=== PATIENT | male | born 1945 | race Caucasian/White ===

== ENCOUNTER 2017-09-30 11:00 | Outpatient (CLI) | payer OTHER | END 2017-09-30 11:01 | disposition home or self-care (01) | LOC: BICRAD 11:00 | PROVIDERS: ATTEND Orthopaedic Surgery | DX: S22.32XA Fracture of one rib, left side, initial encounter for closed fracture (principal) ==

== ENCOUNTER 2019-02-19 11:43 | Observation (INO) | payer MEDICARE, BC ==
[2019-02-19 12:09] LABS: #Basophils 0.1 thou/uL (0.0-0.2); #Eosinphils 0.1 thou/uL (0.0-0.7); #Lymphocytes 3.5 thou/uL (1.20-3.40); #Monocytes 0.7 thou/uL (0.11-0.59); #Neutrophils 6.2 thou/uL (1.40-6.50); %Basophils 0.8 % (0.0-1.0); %Eosinophils 1.4 % (0.0-10.0); %Lymphocytes 33.3 % (21.0-51.0); %Monocytes 6.3 % (0.0-10.0); %Neutrophils 58.3 % (42.0-75.0); Hemoglobin 14.7 g/dL (14.0-18.0); Mean Corpuscular HGB CONC 33.7 g/dL (32.0-36.0); Mean Corpuscular Hemoglobin 33.6 pg (27.0-31.0); Mean Corpuscular Volume 99.9 fL (78.0-98.0); Mean Platelet Volume 7.7 fL (7.4-10.4); Platelet Count 253 thou/uL (130-400); RBC Distribution Width 11.7 % (11.5-14.5); Red Blood Cell (RBC) Count 4.36 mill/uL (4.70-6.10); White Blood Cell (WBC) Count 10.6 thou/uL (4.8-10.8)
[2019-02-19 12:37] LABS: ALT (SGPT) 20 U/L (8-55); AST (SGOT) 23 U/L (5-34); Albumin 4.1 g/dL (3.4-4.8); Alkaline Phosphatase 60 U/L (40-150); Anion Gap 13 mmol/L (10-20); BUN (Urea Nitrogen) 34 mg/dL (8.4-25.7); Bilirubin, Total 0.4 mg/dL (0.2-1.2); CK (CPK) 50 U/L (30-200); Calc. Creatinine Clearance 0 mL/min (70-130); Calcium 9.5 mg/dL (7.8-10.44); Carbon Dioxide 22 mmol/L (23-31); Chloride 105 mmol/L (98-107); Estimated GFR-MDRD 66; Globulin 2.7 g/dL (2.4-3.5); Glucose 93 mg/dL (83-110); Potassium 4.4 mmol/L (3.5-5.1); Protein, Total 6.8 g/dL (5.8-8.1); Sodium 136 mmol/L (136-145)
--- NOTE | 2019-02-19 12:56 | RAD ---
PORTABLE CHEST: HISTORY: Chest pain. FINDINGS: Heart size is within normal limits. There are atherosclerotic changes of the aorta. The lungs are c lear of infiltrates. IMPRESSION: No active intrathoracic disease. POS: CET
[2019-02-19 15:28] LABS: Troponin I 0.016 ng/mL (< 0.028)
[2019-02-19] MEDS ORDERED: Nitroglycerin 0.4 MG TAB (25 Tab Bottle) PO PRN (16:09)
[2019-02-19 16:35] VITALS: BMI 24.0
[2019-02-19 18:20] LABS: Troponin I 0.045 ng/mL (< 0.028)
[2019-02-19] MEDS ORDERED: Atorvastatin Calcium 20 MG TAB PO SCH (21:00)
--- NOTE | 2019-02-19 22:27 | HP ---
CHIEF COMPLAINT: Chest pain. HISTORY OF PRESENT ILLNESS: Mr. Pennington is a pleasant 74-year-old male with past medical history significant for hypertension, hyperlipidemia, and a 50 pack-year history of tobacco abuse, who quit 2 years ago, who presented to the hospital today via EMS with complaints of chest pain. The patient states that he was at his place of business working, standing at the counter when his symptoms began. He reports chest pressure, which he describes as "someone standing on his chest." At that time, he did have associated numbness and tingling down both arms. He does deny any diaphoresis or shortness of breath. The pain did not ease up after 10-15 minutes and so EMS was called. When EMS arrived, he was administered sublingual nitroglycerin, which did promptly relieve his pain. On arrival to the ER, 12-lead EKG showed sinus rhythm with no acute ST or T-wave changes. He did have occasional PVCs noted in 1 EKG tracing. His initial troponin is negative and he is currently resting comfortably and chest pain free. Past cardiac history includes a recent evaluation by Dr. Hernandez at [facility]. The patient's primary care doctor, Dr. Campos referred him for further workup based on his numerous risk factors for CAD. He did undergo a treadmill stress test, which was cut short due to significant hypertension. He was to be scheduled for outpatient nuclear stress test pending insurance approval, but that has not been scheduled as of yet. REVIEW OF SYSTEMS: 12-point review of systems performed and is negative except that stated above. The patient has been in his usual state of health. He denies any fatigue, weakness, or febrile illnesses. ALLERGIES: NO KNOWN DRUG ALLERGIES. HOME MEDICATIONS: 1. Lisinopril 20 mg daily. 2. Occasional [id number] ibuprofen as needed. PAST MEDICAL HISTORY: Hypertension, hyperlipidemia, and history of tobacco abuse. SOCIAL HISTORY: As mentioned, the patient was a long-time smoker. He smoked about a pack a day from the age of 23 to the age of 72. He drinks about 4-5 beers a day and denies any illicit drug use. 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 He lives at home with his . FAMILY HISTORY: Positive for coronary artery disease in his brother who is 70 and has had multiple stents placed. His father had some type of valve surgery, but did at the age of 62 of an NC. PAST SURGICAL HISTORY: The patient has never had any surgeries or hospitalizations. PHYSICAL EXAMINATION: VITAL SIGNS: Blood pressure 158/82, pulse is 56, O2 saturation is 98% on room air, respirations 20. The patient is afebrile. GENERAL: This is a well-appearing 74-year-old male, in no acute distress. HEENT: Head is atraumatic and normocephalic. Mucous membranes are moist. NECK: Supple. Trachea is midline. No lymphadenopathy. No JVD. CV: S1 and S2. Regular rhythm, mildly bradycardic. No appreciable murmurs, rubs, or gallops. LUNGS: Regular respiratory rate and pattern, overall clear to auscultation bilaterally. ABDOMEN: Positive bowel sounds. Soft, nontender. EXTREMITIES: +2 DP pulses. No edema. Lower extremities are warm and well perfused. SKIN: Warm and dry. LABORATORY DATA: White blood cell count 10.6, hemoglobin 14.7, hematocrit 43.6, platelets are 253. Sodium 136, potassium 4.4, chloride 105, creatinine 1.1, total bilirubin 0.4. AST, ALT, alkaline phosphatase all within normal limits. Troponin 0.019. ASSESSMENT: 1. Chest pain consistent with angina in a patient with multiple risk factors. 2. Hypertension. 3. Hyperlipidemia. 4. PVCs 5. Sinus bradycardia 5. History of tobacco abuse with approximately 50 pack-year history, quit 2 years ago. 6. Family history of coronary artery disease. PLAN: At this time, we will admit the patient for ACS rule out. He does have multiple risk factors and we will proceed with nuclear stress test in the morning. Continue p.r.n. nitrates. We will start aspirin 81 mg daily along with statin. Obtain fasting lipids in the morning. The patient has been mildly bradycardic and so we will have to hold off on beta cole for now. We will continue the patient's lisinopril. Given the patient's numerous risk factors and presenting symptoms, we will consult Dr. Parikh of Cardiology. This case has been discussed with Dr. Qureshi who agrees with the above. Job ID: [id number] [facility]
[2019-02-19 23:59] LABS: Troponin I 0.024 ng/mL (< 0.028)
[2019-02-20 05:22] LABS: Cardiac Risk 4.4 (Less than 4.5)
[2019-02-20] MEDS ORDERED: hydrALAZINE 20 MG/ML VIAL SLOW IVP PRN (08:34)
[2019-02-20] MEDS ORDERED: Aspirin 81 mg Enteric Coated Tablet PO SCH (09:00)
[2019-02-20] MEDS ORDERED: Lisinopril 20 MG TAB PO SCH (09:00)
--- NOTE | 2019-02-20 11:22 | EKG ---
Test Reason : Blood Pressure : / mmHG Vent. Rate : 057 BPM Atrial Rate : 057 BPM P-R Int : 172 ms QRS Dur : 094 ms QT Int : 440 ms P-R-T Axes : 057 042 057 degrees QTc Int : 428 ms Sinus bradycardia Otherwise normal ECG Confirmed by SABRINA WEATHERS DO ([id number]), technical editor MARGARITO RENTERIA ([id number] on 02/20/2019 11:22:24 AM Referred By: Confirmed By:SABRINA WEATHERS DO
--- NOTE | 2019-02-20 11:22 | EKG ---
Test Reason : Blood Pressure : / mmHG Vent. Rate : 067 BPM Atrial Rate : 067 BPM P-R Int : 172 ms QRS Dur : 090 ms QT Int : 406 ms P-R-T Axes : 094 064 070 degrees QTc Int : 429 ms Sinus rhythm with occasional Premature ventricular complexes Otherwise normal ECG Confirmed by SABRINA WEATHERS DO ([id number]), newspaper copy editor MARGARITO RENTERIA ([id number] on 02/20/2019 11:22:15 AM Referred By: Confirmed By:SABRINA WEATHERS DO
--- NOTE | 2019-02-20 11:50 | NM ---
EXAM: NM Cardiac Stress W EF WF PROVIDED CLINICAL HISTORY: Chest pain COMPARISON: None RADIOPHARMACEUTICAL: 30.3 millicuries technetium 99m labeled sestamibi IV stress 10 millicuries technetium 99m labeled sestamibi IV rest FINDINGS: There is normal, homogeneous distribution of radiotracer throughout the left ventricular myocardium. Gated data demonstrate normal myocardial wall motion and thickening with calculated LVEF 56%. Calculated TID is 1.09. IMPRESSION: 1. No scintigraphic evidence for ischemia. 2. Calculated LVEF 56%.
[2019-02-20 12:35] LABS: #Basophils 0.1 thou/uL (0.0-0.2); #Eosinphils 0.1 thou/uL (0.0-0.7); #Lymphocytes 1.8 thou/uL (1.20-3.40); #Monocytes 0.5 thou/uL (0.11-0.59); #Neutrophils 3.5 thou/uL (1.40-6.50); %Eosinophils 1.8 % (0.0-10.0); %Lymphocytes 30.7 % (21.0-51.0); %Monocytes 7.6 % (0.0-10.0); Hemoglobin 14.7 g/dL (14.0-18.0); Mean Corpuscular HGB CONC 33.9 g/dL (32.0-36.0); Mean Corpuscular Hemoglobin 33.9 pg (27.0-31.0); Mean Corpuscular Volume 99.9 fL (78.0-98.0); Mean Platelet Volume 8.2 fL (7.4-10.4); Platelet Count 217 thou/uL (130-400); RBC Distribution Width 11.7 % (11.5-14.5); Red Blood Cell (RBC) Count 4.33 mill/uL (4.70-6.10)
[2019-02-20 12:57] LABS: Anion Gap 11 mmol/L (10-20); BUN (Urea Nitrogen) 23 mg/dL (8.4-25.7); Calc. Creatinine Clearance 78 mL/min (70-130); Calcium 9.4 mg/dL (7.8-10.44); Carbon Dioxide 27 mmol/L (23-31); Chloride 105 mmol/L (98-107); Estimated GFR-MDRD 81; Glucose 113 mg/dL (83-110); Potassium 3.8 mmol/L (3.5-5.1); Sodium 139 mmol/L (136-145)
[2019-02-20] MEDS ORDERED: Regadenoson 0.4 MG/5 ML SYRINGE ONE (13:10)
[2019-02-20 15:53] VITALS: BP 162/77; TEMP 98
--- NOTE | 2019-02-22 11:35 | STRESS ---
Acquisition Time: 2019-02-20 09:26:30 Total Exercise Time: 00:01:00 Test Indications: CHEST PAIN Medications: Protocol: LEXISCAN Max HR: 081 BPM 54% of Pred: 148 BPM Max BP: 188/092 mmHG Max Work Load: 1.0 METS RESTING ECG: SINUS BRADYCARDIA SYMPTOMS: DYSPNEA NORMAL BP RESPONSE ECTOPY: NONE ECG STRESS: NO SIGNIFICANT CHANGES INTERPRETATION: AWAIT NUCLEAR IMAGES FOR DEFINITIVE DIAGNOSIS Confirmed by DIANA EASTMAN ([id number]), fan mail editor CHRISTIAN TIERNEY ([id number]) on 02/22/2019 11:35:28 AM Referred By: DAYSI BRADEN Confirmed By:DIANA EASTMAN
== END 2019-02-20 18:36 | disposition home or self-care (01) ==
LOC: ERS 11:43 → 2SW 16:30
PROVIDERS: ADMIT Internal Medicine; ATTEND Internal Medicine
DX: R07.89 Other chest pain (principal); I10 Essential (primary) hypertension; E78.5 Hyperlipidemia, unspecified; I49.3 Ventricular premature depolarization; I70.0 Atherosclerosis of aorta; Z87.891 Personal history of nicotine dependence; Z79.899 Other long term (current) drug therapy; Z88.8 Allergy status to other drugs, medicaments and biological substances
CPT/HCPCS: 71045; 78452; 80048; 80053; 80061; 82550; 84484 ×2; 85025 ×2; 93005; 93017; 99285; A9500; G0378 ×2; 36415; J2785

== ENCOUNTER 2020-03-28 14:17 | Outpatient (CLI) | payer MEDICARE, BC ==
--- NOTE | 2020-03-28 14:30 | RAD ---
EXAM: Single view of the abdomen HISTORY: Epigastric abdominal pain COMPARISON: None FINDINGS: Single view of the abdomen shows a nonspecific, nonobstructive bowel gas pattern. No suspi cious calcifications are seen. Moderate degenerative changes are seen in the spine. IMPRESSION: Unremarkable exam
== END 2020-03-28 14:18 | disposition home or self-care (01) ==
LOC: RAD-FRANK 14:17
PROVIDERS: ATTEND Nurse Practitioner Family
DX: R10.13 Epigastric pain (principal)
CPT/HCPCS: 74018

== ENCOUNTER 2023-03-19 06:03 | Inpatient (IN) | payer MEDICARE ==
[2023-03-18 13:31] LABS: Hemoglobin 14.2 g/dL (13.5-17.5); Mean Corpuscular HGB CONC 33.9 g/dL (32.0-36.0); Mean Corpuscular Hemoglobin 32.9 pg (27.0-33.0); Mean Corpuscular Volume 97.2 fl (81.2-95.1); Platelet Count 178 10x3/uL (150-450); RBC Distribution Width 12.7 % (11.5-14.5); Red Blood Cell (RBC) Count 4.31 10x6/uL (4.32-5.72)
[2023-03-18 13:50] LABS: Anion Gap 13 mmol/L (10-20); BUN (Urea Nitrogen) 11 mg/dL (8.4-25.7); Calc. Creatinine Clearance 0 mL/min (70-130); Calcium 9.2 mg/dL (7.8-10.44); Carbon Dioxide 26 mmol/L (23-31); Chloride 103 mmol/L (98-107); Estimated GFR 92; Glucose 80 mg/dL (83-110); Potassium 5.1 mmol/L (3.5-5.1); Sodium 137 mmol/L (136-145)
[2023-03-19] MEDS ORDERED: Protamine Sulfate 50 MG/5 ML VIAL ONE (06:57)
[2023-03-19] MEDS ORDERED: Heparin 5,000 UNITS/ML VIAL ONE (06:57)
[2023-03-19] MEDS ORDERED: Bupivacaine HCl 0.5%/Epinephrine 1:200,000/PF 30 ml Vial ONE (06:58)
[2023-03-19] MEDS ORDERED: Sodium Chloride 0.9% 100 ML ONE (07:19)
[2023-03-19] MEDS ORDERED: CEFAZOLIN 2 GM VIAL ONE (07:19)
[2023-03-19] MEDS ORDERED: Phenylephrine 10 MG/ML VIAL ONE (07:20)
[2023-03-19] MEDS ORDERED: Fentanyl 250 MCG/5 ML VIAL ONE (07:20)
[2023-03-19] MEDS ORDERED: HYDROmorphone 0.5 MG/0.5 ML SYRINGE ONE (07:20)
[2023-03-19] MEDS ORDERED: Lidocaine 1% PF 5 ML VIAL ONE (07:29)
[2023-03-19] MEDS ORDERED: Glycopyrrolate 0.2 MG/ML 5 ML SYRINGE ONE (07:29)
[2023-03-19] MEDS ORDERED: Dexamethasone 20 MG/5 ML VIAL ONE (07:29)
[2023-03-19] MEDS ORDERED: PROPOFOL 200 MG/20 ML VIAL ONE (07:29)
[2023-03-19] MEDS ORDERED: Esmolol 100 MG/10 ML VIAL ONE (07:29)
[2023-03-19] MEDS ORDERED: Ondansetron PF 4 MG/2 ML Vial ONE (07:29)
[2023-03-19] MEDS ORDERED: Rocuronium Bromide 10 MG/ML (10ML VIAL) ONE (07:29)
[2023-03-19] MEDS ORDERED: ePHEDrine Sulfate 50 MG/10 ML VIAL ONE ×2 (07:29→13:00)
[2023-03-19] MEDS ORDERED: Heparin 10,000 UNITS/ 10 ML VIAL ONE ×2 (08:43→10:29)
[2023-03-19] MEDS ORDERED: SUGAMMADEX SODIUM 200 MG/2 ML VIAL ONE (12:44)
[2023-03-19] MEDS ORDERED: fentaNYL 50 mcg/mL 1 mL Vial SLOW IVP PRN ×2 (13:03)
[2023-03-19] MEDS ORDERED: Ondansetron PF 4 MG/2 ML Vial IVP PRN ×2 (13:03→13:07)
[2023-03-19] MEDS ORDERED: Ipratropium/Albuterol 3 ML NEB NEB PRN (13:03)
[2023-03-19] MEDS ORDERED: Promethazine HCl 25 MG/ML VIAL IVPB PRN (13:03)
[2023-03-19] MEDS ORDERED: Lactated Ringer's 1,000 ML IV SCH (13:03)
[2023-03-19] MEDS ORDERED: PACU-Morphine 4MG/ML VIAL SLOW IVP PRN (13:06)
[2023-03-19] MEDS ORDERED: Promethazine HCl 25 MG/ML VIAL IM PRN ×2 (13:06→13:07)
[2023-03-19] MEDS ORDERED: Ondansetron HCl/PF 4 MG/2 ML Vial IVP PRN (13:06)
[2023-03-19] MEDS ORDERED: HYDROmorphone 2 MG/ML VIAL SLOW IVP PRN (13:06)
[2023-03-19] MEDS ORDERED: FENTANYL 500 MCG/10 ML VIAL 2,000 MCG in Sodium Chloride 0.9% 60 ML IV PRN (13:07)
[2023-03-19] MEDS ORDERED: diphenhydrAMINE 50 MG/ML VIAL IM PRN (13:07)
[2023-03-19] MEDS ORDERED: diphenhydrAMINE 50 MG/ML VIAL IVP PRN (13:07)
[2023-03-19] MEDS ORDERED: Naloxone HCl 0.4 mg/ml Vial IV PRN (13:07)
[2023-03-19] MEDS ORDERED: diphenhydrAMINE 25 MG CAP PO PRN (13:07)
[2023-03-19] MEDS ORDERED: Zolpidem Tartrate 5 MG TAB PO PRN (13:07)
[2023-03-19] MEDS ORDERED: Communication Order-Pharmacy FS SCH (13:15)
[2023-03-19] MEDS ORDERED: Phenylephrine 40 MG/NS 250 ML 40 MG in Premix Bag 1 BAG IVPB PRN (13:51)
[2023-03-19] MEDS ORDERED: Promethazine HCl 6.25 MG in Sodium Chloride 0.9% 50 ML IVPB PRN (14:03)
[2023-03-19 15:05] LABS: #Monocytes 0.7 thou/uL (0.11-0.59); %Basophils 0.3 % (0.0-1.0); %Eosinophils 0.1 % (0.0-10.0); %Lymphocytes 9.2 % (21.0-51.0); %Monocytes 6.1 % (0.0-10.0); %Neutrophils 83.7 % (42.0-75.0); Hemoglobin 12.7 g/dL (14.0-18.0); Mean Corpuscular HGB CONC 33.1 g/dL (32.0-36.0); Mean Corpuscular Hemoglobin 33.2 pg (27.0-31.0); Mean Corpuscular Volume 100.5 fl (78.0-98.0); Mean Platelet Volume 10.7 fL (7.4-10.4); Platelet Count 134 10x3/uL (130-400); RBC Distribution Width 13.2 % (11.5-14.5); Red Blood Cell (RBC) Count 3.82 mill/uL (4.70-6.10); White Blood Cell (WBC) Count 11.9 10x3/uL (4.8-10.8)
[2023-03-19] MEDS: CEFAZOLIN 2 GM in Sodium Chloride 0.9% 100 ML IVPB SCH (18:37)
[2023-03-19] MEDS: Lactated Ringer's 1,000 ML IV SCH (20:12)
[2023-03-19] MEDS: niCARdipine 25 MG in Sodium Chloride 0.9% 250 ML 250 ML IVPB PRN (20:37)
[2023-03-20] MEDS: Lactated Ringer's 1,000 ML IV SCH ×3 (00:16→17:53)
[2023-03-20] MEDS: niCARdipine 25 MG in Sodium Chloride 0.9% 250 ML 250 ML IVPB PRN (00:18)
[2023-03-20] MEDS: CEFAZOLIN 2 GM in Sodium Chloride 0.9% 100 ML IVPB SCH ×2 (02:37→10:26)
[2023-03-20 03:58] LABS: #Monocytes 0.8 thou/uL (0.11-0.59); #Neutrophils 9.5 thou/uL (1.40-6.50); %Basophils 0.2 % (0.0-1.0); %Lymphocytes 13.3 % (21.0-51.0); %Monocytes 6.4 % (0.0-10.0); %Neutrophils 79.8 % (42.0-75.0); Hemoglobin 11.9 g/dL (14.0-18.0); Mean Corpuscular HGB CONC 34.1 g/dL (32.0-36.0); Mean Corpuscular Hemoglobin 33.3 pg (27.0-31.0); Mean Corpuscular Volume 97.8 fl (78.0-98.0); Platelet Count 124 10x3/uL (130-400); Red Blood Cell (RBC) Count 3.57 mill/uL (4.70-6.10); White Blood Cell (WBC) Count 11.9 10x3/uL (4.8-10.8)
[2023-03-20 04:16] LABS: Anion Gap 12 mmol/L (10-20); BUN (Urea Nitrogen) 10 mg/dL (8.4-25.7); Calc. Creatinine Clearance 75 mL/min (70-130); Calcium 8.1 mg/dL (7.8-10.44); Carbon Dioxide 21 mmol/L (23-31); Chloride 111 mmol/L (98-107); Estimated GFR 90; Glucose 160 mg/dL (83-110); Potassium 3.6 mmol/L (3.5-5.1); Sodium 140 mmol/L (136-145)
[2023-03-20] MEDS ORDERED: Aspirin 81 mg Enteric Coated Tablet PO SCH (09:35)
[2023-03-20] MEDS: Aspirin 81 mg Enteric Coated Tablet PO SCH (10:26)
[2023-03-20] MEDS ORDERED: Benzonatate 100 MG CAP PO PRN (19:34)
[2023-03-20] MEDS ORDERED: Guaifenesin DM 100-10/5 ML UDCUP PO PRN (19:35)
[2023-03-21] MEDS: Lactated Ringer's 1,000 ML IV SCH (04:21)
[2023-03-21 04:58] LABS: #Monocytes 0.9 thou/uL (0.11-0.59); #Neutrophils 8.4 thou/uL (1.40-6.50); %Basophils 0.3 % (0.0-1.0); %Eosinophils 0.2 % (0.0-10.0); %Lymphocytes 15.3 % (21.0-51.0); %Monocytes 7.7 % (0.0-10.0); Mean Corpuscular HGB CONC 33.4 g/dL (32.0-36.0); Mean Corpuscular Hemoglobin 33.6 pg (27.0-31.0); Mean Corpuscular Volume 100.3 fl (78.0-98.0); Mean Platelet Volume 11.2 fL (7.4-10.4); RBC Distribution Width 13.3 % (11.5-14.5); Red Blood Cell (RBC) Count 2.98 mill/uL (4.70-6.10); White Blood Cell (WBC) Count 11.1 10x3/uL (4.8-10.8)
[2023-03-21 05:00] LABS: Platelet Count 103 10x3/uL (130-400)
[2023-03-21 05:19] VITALS: BMI 24.0
[2023-03-21 05:19] LABS: Anion Gap 12 mmol/L (10-20); BUN (Urea Nitrogen) 16 mg/dL (8.4-25.7); Calc. Creatinine Clearance 69 mL/min (70-130); Calcium 8.7 mg/dL (7.8-10.44); Carbon Dioxide 22 mmol/L (23-31); Chloride 109 mmol/L (98-107); Estimated GFR 89; Glucose 110 mg/dL (83-110); Potassium 3.8 mmol/L (3.5-5.1); Sodium 139 mmol/L (136-145)
[2023-03-21] MEDS ORDERED: Acetaminophen 500 MG TAB PO PRN (06:45)
[2023-03-21] MEDS ORDERED: traMADol HCl 50 MG TAB PO PRN (06:45)
[2023-03-21] MEDS: Aspirin 81 mg Enteric Coated Tablet PO SCH (08:57)
[2023-03-21] MEDS: Polyethylene Glycol 3350 17 GM Packet PO SCH (08:57)
[2023-03-21] MEDS ORDERED: fentaNYL 50 mcg/mL 1 mL Vial SLOW IVP PRN (10:49)
[2023-03-21] MEDS ORDERED: HYDROcodone/Acetaminophen 5/325 mg Tablet PO PRN (10:49)
[2023-03-21] MEDS: Atorvastatin Calcium 40 MG TAB PO SCH (20:59)
[2023-03-22] MEDS: HYDROcodone/Acetaminophen 5/325 mg Tablet PO PRN ×2 (05:49→20:37)
[2023-03-22] MEDS: Aspirin 81 mg Enteric Coated Tablet PO SCH (08:26)
[2023-03-22] MEDS: Polyethylene Glycol 3350 17 GM Packet PO SCH (08:26)
[2023-03-22] MEDS: Atorvastatin Calcium 40 MG TAB PO SCH (20:36)
[2023-03-23 08:11] VITALS: BP 158/78; TEMP 98.5
[2023-03-23] MEDS: Polyethylene Glycol 3350 17 GM Packet PO SCH (09:34)
[2023-03-23] MEDS: Aspirin 81 mg Enteric Coated Tablet PO SCH (09:34)
[2023-03-26 10:51] LABS: Actual Bicarbonate (HCO3a) 20.5 mEq/L (22-28); Analyzer IN Cardio OR; Base Excess (BEa) -4.4 mEq/L (-2.0 to +3.0); CO2 Tension 37.1 mmHg (35.0-45.0); Calcium, Ionized (arterial) 1.09 mmol/L (1.12-1.30); Hematocrit-ABG 39 % (42.0-52.0); Hemoglobin (Hb) 13.2 g/dL (14.0-18.0); O2 Tension (PaO2), arterial 524.2 mmHg (> 70.0); Potassium - ABG Lab 3.87 mmol/L (3.70-5.30)
[2023-03-26 10:52] LABS: Puncture Site Arterial Line
[2023-03-26 10:52] LABS: Actual Bicarbonate (HCO3a) 16.5 mEq/L (22-28); Analyzer IN Cardio OR; Base Excess (BEa) -9.5 mEq/L (-2.0 to +3.0); CO2 Tension 36.6 mmHg (35.0-45.0); Calcium, Ionized (arterial) 1.06 mmol/L (1.12-1.30); Carboxyhemoglobin (COHb) 1.6 gm% (0.0-3.0); Hematocrit-ABG 38 % (42.0-52.0); Hemoglobin (Hb) 12.8 g/dL (14.0-18.0); O2 Tension (PaO2), arterial 500.5 mmHg (> 70.0); Potassium - ABG Lab 4.55 mmol/L (3.70-5.30); pH, Arterial 7.272 (7.35-7.45)
[2023-03-26 10:54] LABS: Puncture Site Arterial Line
== END 2023-03-23 12:17 | disposition home or self-care (01) | DRG 254 ==
LOC: SDC 06:03 → EDSTATUS 10:05 → CCU 13:03 → SURG A 03-20 09:33
PROVIDERS: ADMIT Thoracic Surgery (Cardiothoracic Vascular Surgery); ATTEND Thoracic Surgery (Cardiothoracic Vascular Surgery)
PROC: 04CL0ZZ Extirpation of Matter from Left Femoral Artery, Open Approach (ICD-10-PCS; principal; 2023-03-19)
PROC: 04CK0ZZ Extirpation of Matter from Right Femoral Artery, Open Approach (ICD-10-PCS; 2023-03-19)
PROC: 04UL0JZ Supplement Left Femoral Artery with Synthetic Substitute, Open Approach (ICD-10-PCS; 2023-03-19)
PROC: 04UK0JZ Supplement Right Femoral Artery with Synthetic Substitute, Open Approach (ICD-10-PCS; 2023-03-19)
PROC: B4101ZZ Fluoroscopy of Abdominal Aorta using Low Osmolar Contrast (ICD-10-PCS; 2023-03-19)
PROC: 4A033R1 Measurement of Arterial Saturation, Peripheral, Percutaneous Approach (ICD-10-PCS; 2023-03-19)
DX: I70.222 Atherosclerosis of native arteries of extremities with rest pain, left leg (principal); E78.5 Hyperlipidemia, unspecified; I10 Essential (primary) hypertension; I71.40 Abdominal aortic aneurysm, without rupture, unspecified
CPT/HCPCS: 36415; 36416; 71045; 74018; 80048; 82805; 85025; 85027; 86850; 86900; 86901; 93005; 93010; C1713; C1758; C1769; J1100; J1170; J1644; J1650; J2370; J2405; J2704; J2720; J3010; J3490; J7050; J7120